=== PATIENT | male | born 1975 | race Caucasian/White ===

== ENCOUNTER 2017-05-16 10:43 | Emergency (ER) | payer OTHER ==
[~2017-05-16] VITALS: Ht 180.3 cm; Wt 91.1 kg
[2017-05-16 12:11] LABS: HEMATOCRIT 46.4 % (38.0-50.0); MCH 31.2 PG (29.0-34.0); MCHC 35.1 G/DL (30.0-36.0); MCV 88.7 FL (86-99); MEAN PLAT.VOLUME 8.7 uM^3 (9.0-12.4); PLATELET COUNT 378 K/uL (156-360); RBC DIS.WIDTH-CV 11.9 % (11.8-14.6); RBC DIS.WIDTH-SD 38.5 % (39-53); RED BLOOD COUNT 5.23 M/uL (4.00-5.50); WHITE BLOOD COUNT 8.6 K/uL (4.1-10.2)
[2017-05-16 12:24] LABS: CHLORIDE 110 mEq/L (99-109); POTASSIUM 3.8 mEq/L (3.7-5.4); SODIUM 141 mEq/L (136-147)
[2017-05-16 12:25] LABS: GLUCOSE 113 mg/dL (70-99)
[2017-05-16 12:27] LABS: ANION GAP 9 MEQ/L (2-14)
[2017-05-16 12:29] LABS: GFR ESTIMATE (CALCULATED) > 59 mL/min/
[2017-05-16 12:30] LABS: UREA NITROGEN (BUN) 10 mg/dL (9-23)
[2017-05-16] MEDS ORDERED: ULTRAM50 MG PO (12:49)
[2017-05-16] MEDS ORDERED: FLEXERIL10 MG PO (12:49)
[2017-05-16] MEDS ORDERED: NORCO 5/3251 TABLET PO (12:49)
[2017-05-16 13:42] VITALS: BP 118/74
== END 2017-05-16 13:50 | disposition home or self-care (01) ==
LOC: EME 10:43
PROVIDERS: Nurse Practitioner Family
PROC: 2W3DX1Z Immobilization of Left Lower Arm using Splint (ICD-10-PCS; principal; 2017-05-16)
DX: S42.032A Displaced fracture of lateral end of left clavicle, initial encounter for closed fracture (principal); S62.307A Unspecified fracture of fifth metacarpal bone, left hand, initial encounter for closed fracture; S20.212A Contusion of left front wall of thorax, initial encounter; S80.02XA Contusion of left knee, initial encounter; S70.212A Abrasion, left hip, initial encounter; S50.812A Abrasion of left forearm, initial encounter; V49.40XA Driver injured in collision with unspecified motor vehicles in traffic accident, initial encounter; Y92.410 Unspecified street and highway as the place of occurrence of the external cause; F17.200 Nicotine dependence, unspecified, uncomplicated
CPT/HCPCS: 73030; 73110; 73130; 80048; 85027; 99281; 99284; J1885